=== PATIENT | female | born 1980 | race Caucasian/White ===

== ENCOUNTER 2019-07-19 11:56 | Emergency (ER) | payer MEDICAID, SELFPAY ==
--- NOTE | 2019-07-19 13:37 | RAD ---
LEFT WRIST 3 VIEWS: Date: 07/19/19 PROVIDED CLINICAL HISTORY: Left wrist pain. FINDINGS: There is no evidence for fracture or other acute osseous abnormality. Alignment appears anatomic. Marva nt spaces appear preserved. Focal area of increased density on the lateral view at the volar aspect o f the proximal carpal row, not further localized. This could reflect changes of calcific peritendinit is. IMPRESSION: 1. No evidence for an acute osseous abnormality. If there is persistent clinical concern, conservati ve management and follow-up imaging are advised. 2. 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 POS: [facility]
== END 2019-07-19 13:52 | disposition home or self-care (01) ==
LOC: NAV ERS 11:56
DX: M65.842 Other synovitis and tenosynovitis, left hand (principal); F17.210 Nicotine dependence, cigarettes, uncomplicated